=== PATIENT | female | born 1980 | race African-American/Black ===

== ENCOUNTER 2016-04-21 15:33 | Outpatient (CLI) ==
[2015-12-21 06:53] VITALS: BMI 33.1
--- NOTE | 2016-04-21 16:21 | US ---
EXAM: Transvaginal pelvic ultrasound HISTORY: Pelvic and peroneal pain COMPARISON: CT abdomen pelvis 06/13/2013 TECHNIQUE: Transvaginal pelvic ultrasound was performed to better evaluate the structures. Limited Doppler was provided. FINDINGS: The uterus colin the ures 9.2 x 5.8 x 6.6 cm. There are multiple mixed echogenic nodules t he largest measuring 2.9 x 2.1 x 2.5 cm consistent with fibroids The endometrium measures 1.8 cm in thickness. Cervix is normal in appearance. The right ovary measures 4.0 x 2.9 x 3.1 cm. There is normal color Doppler flow. Multiple follicles are present. The left ovary measures 4.2 x 3.2 x 3.7 cm. This is abnormal and echogenicity and is predominately c omplex and hypoechoic. There is no internal color Doppler flow identified. IMPRESSION: 1. Complex hypoechoic appearance of the left ovary with no visualized Doppler flow concerning for t orsion. Results were called to nurse practitioner Crumble and patient was given option to go immedi ately to the ER or to OB Clinic. 2. Uterine fibroids.
== END 2016-04-21 15:34 | disposition home or self-care (01) ==
LOC: RAD 15:33
PROVIDERS: ATTEND Nurse Practitioner Family
DX: R10.2 Pelvic and perineal pain (principal)

== ENCOUNTER 2016-06-01 10:48 | Outpatient (CLI) ==
[2015-12-21 06:53] VITALS: BMI 33.1
[2016-06-01 14:11] LABS: FERRITIN 41.23 ng/mL (4.63-204.00)
== END 2016-06-01 10:49 | disposition home or self-care (01) ==
LOC: LAB 10:48
PROVIDERS: ATTEND Nurse Practitioner Family
DX: J02.9 Acute pharyngitis, unspecified (principal); R53.83 Other fatigue
CPT/HCPCS: 36415; 82306; 82607; 82728; 83540; 83550; 84466; 87651; 87880

== ENCOUNTER 2017-03-28 21:11 | Emergency (ER) ==
[2017-03-28 21:21] VITALS: BP 137/89; TEMP 98; BMI 32.3
[2017-03-28] MEDS ORDERED: DECADRON 4 MG/ML SDV IM STA (21:29)
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
--- NOTE | 2017-03-28 22:03 | DI ---
EXAM: Chest two views HISTORY: Coughing COMPARISON: 02/24/2016 TECHNIQUE: Two views of the chest were performed FINDINGS: The lungs are clear. There is no pleural effusion or pneumothorax. The heart is [place] enlarged in size. The mediastinal contour is normal. There are no acute abnormalities of the bones. IMPRESSION: No acute cardiopulmonary process.
[2017-03-28 22:17] LABS: FLU INTERNAL QC INTERNAL QC VALID; MOLECULAR FLU A NEGATIVE (NEGATIVE); MOLECULAR FLU B NEGATIVE (NEGATIVE)
== END 2017-03-28 22:30 | disposition home or self-care (01) ==
LOC: ED 21:11
DX: J06.9 Acute upper respiratory infection, unspecified (principal); F17.210 Nicotine dependence, cigarettes, uncomplicated
CPT/HCPCS: 87651; 87804; 87880; 96372; 99283

== ENCOUNTER 2017-05-11 12:51 | Outpatient (CLI) | END 2017-05-11 12:52 | disposition home or self-care (01) | LOC: LAB 12:51 | PROVIDERS: ATTEND Nurse Practitioner Family | DX: R10.9 Unspecified abdominal pain (principal); R14.0 Abdominal distension (gaseous) | CPT/HCPCS: 36415; 86677 ==

== ENCOUNTER 2017-08-13 18:15 | Emergency (ER) ==
[2017-08-13 18:19] VITALS: BP 101/76; TEMP 98; BMI 31.1
[2017-08-13] MEDS ORDERED: TORADOL IM STA (19:17)
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
--- NOTE | 2017-08-14 07:04 | DI ---
EXAM: Three views of the lumbar spine. History: Lower back pain. Findings: No acute fracture or subluxation of the lumbar spine. Disc space heights are relatively p reserved. Impression: Unremarkable exam
== END 2017-08-13 20:34 | disposition home or self-care (01) ==
LOC: ED 18:15
DX: S33.5XXA Sprain of ligaments of lumbar spine, initial encounter (principal); F17.210 Nicotine dependence, cigarettes, uncomplicated
CPT/HCPCS: 81001; 81025; 96372; 99283

== ENCOUNTER 2017-11-01 18:51 | Emergency (ER) ==
[2017-11-01 18:54] VITALS: BP 127/83; TEMP 97.2; BMI 30.2
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
[2017-11-01] MEDS ORDERED: DILAUDID 2 MG/ML SYRINGE IM STA (19:46)
[2017-11-01] MEDS ORDERED: PHENERGAN 25 MG/ML VIAL IM STA (19:46)
--- NOTE | 2017-11-01 20:19 | CT ---
EXAM: CT of the abdomen pelvis without contrast History: Lower abdominal pain. Comparison: CT abdomen pelvis 06/13/2013 Technique: Multiplanar CT images through the abdomen pelvis were obtained without the administration of IV contrast Findings: Lung bases are clear. No acute osseous abnormalities. Status post cholecystectomy. No renal stones and no hydronephrosis. No focal liver or splenic lesio ns. No peripancreatic inflammation. Adrenal glands are unremarkable. No dilated loops of bowel. S cattered colonic stool. The appendix is normal. No bladder wall thickening. Adnexal structures jason ear appropriate for patient's age. No perirectal inflammation. No free air and no ascites. A few c ecal diverticula again noted. Impression: 1. No acute intra-abdominal or pelvic process. 2. Cecal diverticula but no evidence for diverticulitis.
== END 2017-11-01 20:28 | disposition home or self-care (01) ==
LOC: ED 18:51
DX: N30.00 Acute cystitis without hematuria (principal); F17.210 Nicotine dependence, cigarettes, uncomplicated
CPT/HCPCS: 36415; 80053; 81001; 81025; 82150; 83690; 85025; 85651; 87086; 87800; 96372; 99283